=== PATIENT | male | born 1945 | race Caucasian/White ===

== ENCOUNTER 2020-07-10 09:28 | Inpatient (IN) | payer OTHER, BC ==
[2020-07-10] MEDS ORDERED: MIDAZOLAM HCL 2 MG/2 ML SINGLE DOSE VIAL ONE ×3 (10:37→15:10)
[2020-07-10] MEDS ORDERED: BUPIVACAINE HCL 100 ML ONE (10:38)
[2020-07-10] MEDS ORDERED: DEXAMETHASONE SOD PHOSPHATE 10 MG/1 ML VIAL ONE (10:38)
[2020-07-10 10:49] VITALS: BMI 19.4
[2020-07-10] MEDS ORDERED: LIDOCAINE HCL/PF 2% SDV 5ML VIAL ONE (11:23)
[2020-07-10] MEDS ORDERED: BUPIVACAINE HCL 50 ML ONE (12:31)
[2020-07-10] MEDS ORDERED: ceFAZolin SODIUM 1 GM VIAL ONE (13:13)
[2020-07-10] MEDS ORDERED: TRANEXAMIC ACID 1000 MG/10 ML VIAL ONE ×2 (13:13→15:42)
[2020-07-10] MEDS ORDERED: ONDANSETRON 4 MG/2 ML VIAL ONE (13:13)
[2020-07-10] MEDS ORDERED: DEXAMETHASONE SOD PHOSPHATE 4 MG/1 ML VIAL ONE (13:13)
[2020-07-10] MEDS ORDERED: ONDANSETRON 4 MG/2 ML VIAL IVPUSH PRN ×2 (14:45→16:44)
[2020-07-10] MEDS ORDERED: LACTATED RINGERS SOLUTION 1,000 ML IV SCH ×2 (14:45→16:45)
[2020-07-10] MEDS ORDERED: oxyCODONE HCL 5 MG TABLET PO PRN (14:46)
[2020-07-10] MEDS ORDERED: VANCOMYCIN 1,000 MG VIAL (RESTRICTED TO ID ONLY) ONE (14:48)
[2020-07-10] MEDS ORDERED: BUPIVICAINE 0.25%/MORPH PF/KETOROLAC - 51ML DISP.SYRINGE IA ONE ×2 (15:33→15:45)
[2020-07-10] MEDS ORDERED: VANCOMYCIN 1,000 MG VIAL (RESTRICTED TO ID ONLY) IVPB ONE (15:40)
[2020-07-10] MEDS ORDERED: MAG HYDROX/AL HYDROX/SIMETH 30 ML UNIT-DOSE CUP PO PRN (16:44)
[2020-07-10] MEDS ORDERED: MAGNESIUM HYDROX 2400MG/30ML ORAL SUSPENSION 30 ML CUP PO PRN (16:44)
[2020-07-10] MEDS ORDERED: ACETAMINOPHEN 325 MG TABLET (FP) ONE (17:36)
[2020-07-10] MEDS: ACETAMINOPHEN 325 MG TABLET (FP) PO SCH (21:33)
[2020-07-10] MEDS: GABAPENTIN 300 MG CAPSULE PO SCH (21:33)
[2020-07-10] MEDS: CEFAZOLIN 2 GM/D5W 2 GM/50 ML ML IVPB SCH (21:33)
[2020-07-10] MEDS: SENNOSIDES/DOCUSATE COMBO (SENNA PLUS) TABLET (UD) PO SCH (21:33)
[2020-07-11] MEDS: oxyCODONE HCL 5 MG TABLET PO PRN ×5 (01:31→21:31)
[2020-07-11] MEDS: ACETAMINOPHEN 325 MG TABLET (FP) PO SCH ×5 (03:57→21:32)
[2020-07-11] MEDS: CEFAZOLIN 2 GM/D5W 2 GM/50 ML ML IVPB SCH ×2 (04:00→13:08)
[2020-07-11 07:32] LABS: HEMATOCRIT 36.8 % (35.4-49); HEMOGLOBIN 12.1 GM/dl (11.7-16.9); MCH 30.5 pg (25.7-33.7); MCHC 32.8 g/dl (32.0-35.9); MEAN CELL VOLUME 92.9 fl (80-96); MEAN PLT VOLUME 7.3 fl (7.5-11.1); PLATELET COUNT 173 K/MM3 (134-434); RBC 3.96 M/mm3 (4.00-5.60); RDW 13.2 % (11.9-15.9); WHITE BLOOD COUNT 15.3 K/mm3 (4.0-10.8)
[2020-07-11 07:43] LABS: CALCIUM 8.7 mg/dl (8.5-10); CREATININE 1.7 mg/dl (0.55-1.3)
[2020-07-11] MEDS: SENNOSIDES/DOCUSATE COMBO (SENNA PLUS) TABLET (UD) PO SCH ×2 (09:42→21:34)
[2020-07-11] MEDS: ASPIRIN 325 MG TABLET PO SCH ×2 (09:42→21:32)
[2020-07-11] MEDS: MULTIVITAMINS (DAILY MVI) TABLET (FP) PO SCH (09:42)
[2020-07-11] MEDS: PANTOPRAZOLE 40 MG TABLET PO SCH (09:43)
[2020-07-11] MEDS: GABAPENTIN 300 MG CAPSULE PO SCH ×2 (09:43→21:31)
[2020-07-11] MEDS: ISOSORBIDE MONONITRATE 60 MG TAB.SR.24H (FP) PO SCH (13:47)
[2020-07-11] MEDS ORDERED: PT OWN MED DRAWER 7, Y5N ONE ×3 (17:25→21:20)
[2020-07-11] MEDS: LIPASE/PROTEASE/AMYLASE 36,000 UNIT CAPSULE PO SCH (21:30)
[2020-07-11] MEDS: ROSUVASTATIN CA 10 MG TABLET (FP) PO SCH (21:32)
[2020-07-11] MEDS ORDERED: TERAZOSIN HCL 5 MG CAPSULE PO SCH (22:00)
[2020-07-12] MEDS: ACETAMINOPHEN 325 MG TABLET (FP) PO SCH ×4 (02:24→21:54)
[2020-07-12 07:53] LABS: HEMATOCRIT 31.3 % (35.4-49); HEMOGLOBIN 10.5 GM/dl (11.7-16.9); MCH 31.2 pg (25.7-33.7); MCHC 33.6 g/dl (32.0-35.9); MEAN CELL VOLUME 92.9 fl (80-96); MEAN PLT VOLUME 7.8 fl (7.5-11.1); PLATELET COUNT 155 K/MM3 (134-434); RBC 3.37 M/mm3 (4.00-5.60); RDW 13.9 % (11.9-15.9)
[2020-07-12] MEDS: ASPIRIN 325 MG TABLET PO SCH ×2 (09:28→21:53)
[2020-07-12] MEDS: LIPASE/PROTEASE/AMYLASE 36,000 UNIT CAPSULE PO SCH ×2 (09:28→21:53)
[2020-07-12] MEDS: GABAPENTIN 300 MG CAPSULE PO SCH ×2 (09:28→21:53)
[2020-07-12] MEDS: ISOSORBIDE MONONITRATE 60 MG TAB.SR.24H (FP) PO SCH (09:28)
[2020-07-12] MEDS: SENNOSIDES/DOCUSATE COMBO (SENNA PLUS) TABLET (UD) PO SCH ×2 (09:29→21:53)
[2020-07-12] MEDS: traMADol HCL 50 MG TABLET PO PRN ×2 (09:29→19:55)
[2020-07-12] MEDS: MULTIVITAMINS (DAILY MVI) TABLET (FP) PO SCH (09:30)
[2020-07-12] MEDS: PANTOPRAZOLE 40 MG TABLET PO SCH (09:30)
[2020-07-12] MEDS ORDERED: SODIUM CHLORIDE 1,000 ML IV STA (10:04)
[2020-07-12] MEDS ORDERED: SODIUM CHLORIDE 500 ML IV STA (12:04)
[2020-07-12] MEDS ORDERED: PT OWN MED DRAWER 7, Y5N ONE ×3 (13:31→21:29)
[2020-07-12] MEDS: ROSUVASTATIN CA 10 MG TABLET (FP) PO SCH (21:53)
[2020-07-13] MEDS: ACETAMINOPHEN 325 MG TABLET (FP) PO SCH ×2 (06:01→09:59)
[2020-07-13 08:01] LABS: BASO % 0.2 % (0-2.0); EOS % 0.6 % (0-4.5); HEMATOCRIT 29.2 % (35.4-49); HEMOGLOBIN 9.9 GM/dl (11.7-16.9); LYMPH % 24.1 % (8-40); MCH 31.5 pg (25.7-33.7); MCHC 33.8 g/dl (32.0-35.9); MEAN CELL VOLUME 93.3 fl (80-96); MEAN PLT VOLUME 7.7 fl (7.5-11.1); MONO % 10.2 % (3.8-10.2); NEUT % 64.9 % (42.8-82.8); PLATELET COUNT 114 K/MM3 (134-434); RBC 3.13 M/mm3 (4.00-5.60); RDW 13.7 % (11.9-15.9); WHITE BLOOD COUNT 9.4 K/mm3 (4.0-10.8)
[2020-07-13 08:08] LABS: ALBUMIN 2.4 g/dl (3.4-5.0); BILIRUBIN,TOTAL 0.4 mg/dl (0.2-1); CALCIUM 7.9 mg/dl (8.5-10); MAGNESIUM 1.8 mg/dL (1.8-2.4); TOT PROT 4.5 g/dl (6.4-8.2)
[2020-07-13] MEDS ORDERED: PT OWN MED DRAWER 7, Y5N ONE ×2 (09:53→13:07)
[2020-07-13] MEDS: PANTOPRAZOLE 40 MG TABLET PO SCH (09:59)
[2020-07-13] MEDS: ASPIRIN 325 MG TABLET PO SCH (09:59)
[2020-07-13] MEDS: SENNOSIDES/DOCUSATE COMBO (SENNA PLUS) TABLET (UD) PO SCH (09:59)
[2020-07-13] MEDS: GABAPENTIN 300 MG CAPSULE PO SCH (09:59)
[2020-07-13] MEDS: LIPASE/PROTEASE/AMYLASE 36,000 UNIT CAPSULE PO SCH (09:59)
[2020-07-13] MEDS: MULTIVITAMINS (DAILY MVI) TABLET (FP) PO SCH (09:59)
[2020-07-13] MEDS: traMADol HCL 50 MG TABLET PO PRN (10:00)
[2020-07-13 10:30] VITALS: BP 120/61; PULSE 78; TEMP 98.1
== END 2020-07-13 13:30 | disposition home or self-care (01) | DRG 470 ==
LOC: FM/S 09:28
PROVIDERS: ADMIT Orthopaedic Surgery Sports Medicine; ATTEND Nurse Practitioner Acute Care
PROC: 8E0Y0CZ Robotic Assisted Procedure of Lower Extremity, Open Approach (ICD-10-PCS; 2020-07-10)
PROC: 0SR90JZ Replacement of Right Hip Joint with Synthetic Substitute, Open Approach (ICD-10-PCS; principal; 2020-07-10 13:52)
DX: M16.11 Unilateral primary osteoarthritis, right hip (principal); I10 Essential (primary) hypertension; I25.10 Atherosclerotic heart disease of native coronary artery without angina pectoris; I25.2 Old myocardial infarction; K21.9 Gastro-esophageal reflux disease without esophagitis; N40.0 Benign prostatic hyperplasia without lower urinary tract symptoms; E78.5 Hyperlipidemia, unspecified
CPT/HCPCS: 36415; 73502-TC-LT-FY; 80048; 80053; 83735; 85025; 85027; 88305-TC; 88311-TC; 94760; 97010-GP; 97116-GP; 97163-GP; J1100

== ENCOUNTER 2021-03-16 05:52 | Day surgery (SDC) | payer OTHER, BC ==
[2021-03-13 12:12] VITALS: BMI 19.8
[2021-03-16] MEDS ORDERED: MIDAZOLAM HCL 2 MG/2 ML SINGLE DOSE VIAL ONE (06:47)
[2021-03-16] MEDS ORDERED: ROPIVACAINE HCL/PF 100 MG/20 ML VIAL ONE (06:47)
[2021-03-16] MEDS ORDERED: PROPOFOL 20 ML ONE (07:15)
[2021-03-16] MEDS ORDERED: ONDANSETRON 4 MG/2 ML VIAL IVPUSH PRN (07:34)
[2021-03-16] MEDS ORDERED: oxyCODONE HCL 5 MG TABLET PO PRN (07:34)
[2021-03-16] MEDS ORDERED: methylPREDNISolone ACET (DEPO) 40 MG/1 ML VIAL ONE (07:40)
[2021-03-16] MEDS ORDERED: LIDOCAINE HCL 1%, 10 MG/ML (20ML VIAL) ONE (07:40)
[2021-03-16] MEDS ORDERED: LACTATED RINGERS SOLUTION 1,000 ML IV SCH (07:45)
[2021-03-16] MEDS ORDERED: ceFAZolin SODIUM 1 GM VIAL ONE (08:19)
[2021-03-16] MEDS ORDERED: ONDANSETRON 4 MG/2 ML VIAL ONE (08:26)
[2021-03-16] MEDS ORDERED: DEXAMETHASONE SOD PHOSPHATE 4 MG/1 ML VIAL ONE (08:26)
[2021-03-16] MEDS ORDERED: LIDOCAINE 1% P/F 10 MG/ML VIAL INF ONE (08:35)
[2021-03-16] MEDS ORDERED: ePHEDrine SULFATE 50 MG/1 ML AMPULE ONE (08:49)
[2021-03-16 11:36] VITALS: BP 130/66; PULSE 84; TEMP 98
== END 2021-03-16 12:00 | disposition home or self-care (01) ==
LOC: FASU 05:52
PROVIDERS: ATTEND Orthopaedic Surgery
PROC: 0RBJ4ZZ Excision of Right Shoulder Joint, Percutaneous Endoscopic Approach (ICD-10-PCS; principal; 2021-03-16 08:34)
DX: M75.41 Impingement syndrome of right shoulder (principal); M75.01 Adhesive capsulitis of right shoulder; S43.431A Superior glenoid labrum lesion of right shoulder, initial encounter; X58.XXXA Exposure to other specified factors, initial encounter; Y93.9 Activity, unspecified; Y92.9 Unspecified place or not applicable
CPT/HCPCS: 94760